=== PATIENT | female | born 1975 | race Caucasian/White ===

== ENCOUNTER 2020-07-22 14:59 | Emergency (ER) | payer BC ==
[~2020-07-22] VITALS: Ht 154.9 cm; Wt 77.1 kg
--- NOTE | 2020-07-22 15:07 | NUR ---
Dr. Grullon is evaluating patient in triage room.
[2020-07-22 15:08] VITALS: BP 172/108
[2020-07-22 15:51] LABS: BASOPHILS # (AUTO) 0.1 K/uL (0.00-0.22); BASOPHILS % (AUTO) 0.7 % (0.0-2.0); EOSINOPHILS # (AUTO) 0.2 K/uL (0-0.4); EOSINOPHILS % (AUTO) 1.7 % (0.0-4.0); HEMATOCRIT 39.4 % (36-48); HEMOGLOBIN 13.6 g/dL (12.0-16.0); LYMPHOCYTES # (AUTO) 3.8 K/uL (2.5-16.5); MEAN CORPUSCULAR HEMOGLOBIN 31 pg (27-31); MEAN CORPUSCULAR HGB CONC 35 g/dL (33-37); MONOCYTES # (AUTO) 0.8 K/uL (0.8-1.0); MONOCYTES % (AUTO) 9.1 % (1.7-9.3); NEUTROPHILS # (AUTO) 4.4 K/uL (1.8-7.7); NEUTROPHILS % (AUTO) 47.5 % (42.2-75.2); PLATELET COUNT (AUTO) 404 K/uL (140-450); RED BLOOD CELL COUNT(AUTO) 4.33 MIL/uL (4.20-5.40); RED CELL DISTRIBUTION WIDTH 12.6 % (11.6-13.7); WHITE BLOOD COUNT (AUTO) 9.2 K/uL (4.8-10.8)
[2020-07-22] MEDS: LORazepam 1 MG TAB PO ONE (15:56)
[2020-07-22] MEDS: ASPIRIN 325 MG TAB PO ONE (15:56)
[2020-07-22 16:15] LABS: ALBUMIN 3.8 g/dL (3.4-5.0); ANION GAP 12.9 (8-16); CARBON DIOXIDE 25.6 mmol/L (21-32); CREATININE 0.6 mg/dL (0.6-1.3); POTASSIUM 3.5 mmol/L (3.5-5.1); TOTAL BILIRUBIN 0.3 mg/dL (0.0-1.0)
--- NOTE | 2020-07-22 16:25 | NUR ---
Chest pain x 2 days, 6/10 pain, pressure/constant. Dr. Grullon is in triage evaluating patient. Nitroglycerin prior to arrival. NIHSS 0 PMH: HTN, angina Meds: Nitro, albuterol, metoprolol, candasartan, Zrytec NKA
[2020-07-22 17:45] VITALS: BP 128/71
--- NOTE | 2020-07-22 19:11 | NUR ---
Patient discharged with v/s stable. Written and verbal after care instructions given and explained. Patient verbalized understanding. Ambulatory with steady gait. All questions addressed prior to discharge. Advised to follow up with PMD.
== END 2020-07-22 19:05 | disposition home or self-care (01) ==
LOC: MED 14:59
DX: R07.89 Other chest pain (principal); I10 Essential (primary) hypertension; Z90.49 Acquired absence of other specified parts of digestive tract
CPT/HCPCS: 36415; 71045; 80053; 83690; 84484; 85025; 93005; 99285